=== PATIENT | female | born 1980 | race Caucasian/White ===

== ENCOUNTER 2019-07-23 16:18 | Emergency (ER) | payer MEDICARE ==
--- NOTE | 2019-07-23 16:27 | ERPHSYRPT ---
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 [place]. pt has tenderness around ostomy site. pt concerned about blood in the ostomy bag and there are skin changes around ostomy site. denies n/v. pts colorectal surgeon is in [place] and she has an appt with new pcp on 07/25/19. pt has known ostomy hernia chronically. Timing/Duration: day(s) (several) Activities at Onset: none Quality: pressure (right lower quadrant) Abdominal Pain Onset Location: RLQ, other (ostomy site) Pain Radiation: no radiation Severity of Pain-Max: mild Severity of Pain-Current: mild Associated Symptoms: denies symptoms Previous symptoms: no prior history Allergies/Adverse Reactions: sulfamethoxazole [From Bactrim] Allergy (Verified 07/23/19 16:55) trimethoprim [From Bactrim] Allergy (Verified 07/23/19 16:55) Home Medications: Prazosin HCl 5 mg PO BID 07/23/19 [History] levETIRAcetam [Levetiracetam] 250 mg PO TID 07/23/19 [History] - Review of Systems Constitutional: No Symptoms Eyes: No Symptoms Ears, Nose, & Throat: No Symptoms Respiratory: No Symptoms Cardiac: No Symptoms Abdominal/Gastrointestinal: Abdominal Pain (mild right lower quadrant tenderness.) Genitourinary Symptoms: No Symptoms Musculoskeletal: No Symptoms Skin: Other (mild tenderness skin around ostomy site) Neurological: No Symptoms Psychological: No Symptoms Endocrine: No Symptoms Hematologic/Lymphatic: No Symptoms Immunological/Allergic: No Symptoms All Other Systems: Reviewed and Negative - Past Medical History Pertinent Past Medical History: Yes Neurological History: No Pertinent History ENT History: No Pertinent History Cardiac History: No Pertinent History Respiratory History: No Pertinent History Endocrine Medical History: No Pertinent History Musculoskeletal History: No Pertinent History History: No Pertinent History Psycho-Social History: No Pertinent History Female Reproductive Disorders: No Pertinent History - Past Surgical History Neuro Surgical History: No Pertinent History Cardiac: No Pertinent History Respiratory: No Pertinent History Gastrointestinal: Colon Resection, Other (ostomy rlq) - Nursing Vital Signs Nursing Vital Signs: Initial Vital Signs Temperature 98.3 F 07/23/19 16:26 Pulse Rate 68 07/23/19 16:26 Respiratory Rate 20 07/23/19 16:26 Blood Pressure 112/67 07/23/19 16:26 O2 Sat by Pulse Oximetry 98 07/23/19 16:26 Pain Scale Pain Intensity 6 - Physical Exam General Appearance: no apparent distress, alert, anxiety Eye Exam: PERRL/EOMI, eyes nml inspection Ears, Nose, Throat Exam: normal ENT inspection, moist mucous membranes Neck Exam: normal inspection, non-tender, supple, full range of motion Respiratory Exam: normal breath sounds, lungs clear, airway intact, No chest tenderness, No respiratory distress Cardiovascular Exam: regular rate/rhythm, normal heart sounds, normal peripheral pulses Gastrointestinal/Abdomen Exam: soft, normal bowel sounds, tenderness (mild tenderness at periostomy reducible hernia; ), other (ostomy pink and functioning. peristomal skin sl red but no cellulitis or scalding), No guarding , No rebound Pelvic Exam: not done Rectal Exam: not done Back Exam: normal inspection, normal range of motion, No CVA tenderness, No vertebral tenderness Extremity Exam: normal inspection, normal range of motion, pelvis stable Neurologic Exam: alert, oriented x 3, cooperative, final inspector shuttle II-XII nml as tested Skin Exam: normal color, warm, dry Lymphatic Exam: adenopathy O2 Delivery: Room Air Ordered Tests: Active Orders 24 hr Category Date Time Status CBC W DIFF Stat Lab 07/23/19 17:35 Completed CMP Stat Lab 07/23/19 17:35 Completed UA W/RFX UR CULTURE Stat Lab 07/23/19 17:20 Completed Lab/Rad Data: Laboratory Result Diagrams 07/23/19 17:35 07/23/19 17:35 Laboratory Results 07/23/19 07/23/19 07/23/19 Range/Units 17:35 17:35 17:20 WBC 6.9 (4.0-10.5) K/mm3 RBC 4.28 (4.1-5.4) M/mm3 Hgb 12.1 (12.0-16.0) gm/dl Hct 36.1 (35-47) % MCV 84.3 (78-100) fl MCH 28.3 (26-32) pg MCHC 33.5 (32-36) g/dl RDW 16.0 H (11.5-14.0) % Plt Count 352 (150-450) K/mm3 MPV 9.0 (6-9.5) fl Gran % 53.6 (36.0-66.0) % Eos # (Auto) 0.13 (0-0.5) Absolute Lymphs (auto) 2.70 (1.0-4.6) Absolute Monos (auto) 0.36 (0.0-1.3) Lymphocytes % 39.0 (24.0-44.0) % Monocytes % 5.2 (0.0-12.0) % Eosinophils % 1.9 (0.00-5.0) % Basophils % 0.3 (0.0-0.4) % Absolute Granulocytes 3.72 (1.4-6.9) Basophils # 0.02 (0-0.4) Sodium 137 (137-145) mmol/L Potassium 4.1 (3.5-5.1) mmol/L Chloride 101 (98-107) mmol/L Carbon Dioxide 24 (22-30) mmol/L Anion Gap 16.1 H (5-15) MEQ/L BUN 7 (7-17) mg/dL Creatinine 0.95 (0.52-1.04) mg/dL Estimated GFR > 60.0 ML/MIN Glucose 79 (74-106) mg/dL Calcium 9.2 (8.4-10.2) mg/dL Total Bilirubin 0.20 (0.2-1.3) mg/dL AST 20 (14-36) U/L ALT 19 (0-35) U/L Alkaline Phosphatase 68 (38-126) U/L Serum Total Protein 6.9 (6.3-8.2) g/dL Albumin 4.2 (3.5-5.0) g/dL Urine Color YELLOW (YELLOW) Urine Appearance CLEAR (CLEAR) Urine pH 6.0 (5-6) Ur Specific [place] 1.008 (1.005-1.025) Urine Protein NEGATIVE (Negative) Urine Ketones NEGATIVE (NEGATIVE) Urine Blood SMALL (0-5) Jd/ul Urine Nitrite NEGATIVE (NEGATIVE) Urine Bilirubin NEGATIVE (NEGATIVE) Urine Urobilinogen NEGATIVE (0-1) mg/dL Ur Leukocyte Esterase TRACE (NEGATIVE) Urine WBC (Auto) 3-5 (0-5) /HPF Urine RBC (Auto) 0-2 (0-2) /HPF U Epithel Cells (Auto) MODERATE (FEW) /HPF Urine Bacteria (Auto) RARE (NEGATIVE) /HPF Urine Mucus (Auto) SLIGHT (NEGATIVE) /HPF Urine Culture Reflexed NO (NO) Urine Glucose NEGATIVE (NEGATIVE) mg/dL - Progress Progress: unchanged Counseled pt/family regarding: lab results, diagnosis, need for follow-up - Departure Departure Disposition: Home Clinical Impression: UTI (urinary tract infection), Complication of ostomy Condition: Stable Critical Care Time: No Referrals: JOHNSON COPELAND MD [Primary Care Provider] - Additional Instructions: drink plenty of fluids. keep your appointment with primary doctor on 07/26/19. alternate your periostomy skin powder with zinc oxide ointment for treatment of your irritated periostomy skin. Prescriptions: Cephalexin Mh 500 mg [Keflex 500 mg] 500 mg PO TID #21 capsule
[2019-07-23 17:43] LABS: BASOPHIL % 0.3 % (0.0-0.4); Basophil (Absolute #) 0.02 (0-0.4); Eosinophil % 1.9 % (0.00-5.0); Eosinophil (Absolute #) 0.13 (0-0.5); Granulocyte Absolute (ANC) 3.72 (1.4-6.9); Granulocytes % 53.6 % (36.0-66.0); Hematocrit 36.1 % (35-47); Hemoglobin 12.1 gm/dl (12.0-16.0); Mean Cell Volume 84.3 fl (78-100); Mean Corpuscular Hemoglobin 28.3 pg (26-32); Mean Corpuscular Hgb Concent. 33.5 g/dl (32-36); Monocyte (Absolute #) 0.36 (0.0-1.3); Monocytes % 5.2 % (0.0-12.0); Platelet Count 352 K/mm3 (150-450); Red Blood Count 4.28 M/mm3 (4.1-5.4); White Blood Count 6.9 K/mm3 (4.0-10.5)
[2019-07-23 17:46] LABS: Appearance CLEAR (CLEAR); Bacteria RARE /HPF (NEGATIVE); Bilirubin NEGATIVE (NEGATIVE); Blood SMALL Ery/ul (0-5); Epithelial Cells MODERATE /HPF (FEW); Glucose NEGATIVE (NEGATIVE); Ketones NEGATIVE (NEGATIVE); Leukocyte Esterase TRACE (NEGATIVE); Mucus SLIGHT /HPF (NEGATIVE); Nitrite NEGATIVE (NEGATIVE); Protein,Urine Dip NEGATIVE (Negative); RBC 0-2 /HPF (0-2); Specific Gravity 1.008 (1.005-1.025); Urobilinogen NEGATIVE mg/dL (0-1)
[2019-07-23 17:54] LABS: ALBUMIN 4.2 g/dL (3.5-5.0); ALKALINE PHOSPHATASE 68 U/L (38-126); ANION GAP 16.1 MEQ/L (5-15); BLOOD UREA NITROGEN 7 mg/dL (7-17); CHLORIDE 101 mmol/L (98-107); Calcium 9.2 mg/dL (8.4-10.2); Carbon Dioxide 24 mmol/L (22-30); Creatinine 1 0.95 mg/dL (0.52-1.04); Glucose 79 mg/dL (74-106); Potassium 4.1 mmol/L (3.5-5.1); SGOT/AST 20 U/L (14-36); SGPT/ALT 19 U/L (0-35); SODIUM 137 mmol/L (137-145); Total Protein 6.9 g/dL (6.3-8.2)
[2019-07-23] MEDS ORDERED: PERCOCET TABLET 5/325MG PO STA (18:13)
[2019-07-23] MEDS ORDERED: KEFLEX 500 MG PO ONE (18:14)
[2019-07-23] MEDS ORDERED: PERCOCET TABLET 5/325MG ONE (18:19)
[2019-07-23] MEDS ORDERED: KEFLEX 500 MG ONE (18:19)
[2019-07-23 18:32] VITALS: BP 114/71; PULSE 64; O2SAT 97
== END 2019-07-23 18:31 | disposition home or self-care (01) ==
LOC: ED 16:18
DX: N39.0 Urinary tract infection, site not specified (principal); K94.00 Colostomy complication, unspecified
CPT/HCPCS: 36415; 80053; 81001; 85025; 99284; A9270-GY